=== PATIENT | female | born 1995 | race Caucasian/White ===

== ENCOUNTER 2018-01-27 14:52 | Emergency (ER) | payer OTHER ==
[~2018-01-27] VITALS: Ht 154.9 cm; Wt 59.0 kg
== END 2018-01-27 21:02 | disposition home or self-care (01) ==
LOC: ER 14:52
DX: O20.0 Threatened abortion (principal); Z34.81 Encounter for supervision of other normal pregnancy, first trimester

== ENCOUNTER 2018-01-31 13:39 | Inpatient (IN) | payer OTHER ==
[~2018-01-31] VITALS: Ht 165.1 cm; Wt 47.6 kg
[2018-02-02] MEDS ORDERED: AMOX1TAB5 PO (11:50)
[2018-02-02] MEDS ORDERED: DOXYCYCLINE HY100 MG PO (11:50)
== END 2018-02-02 13:41 | disposition home or self-care (01) | DRG 770 ==
LOC: ER 13:39 → SURG 21:52
PROC: 10D17ZZ Extraction of Products of Conception, Retained, Via Natural or Artificial Opening (ICD-10-PCS; principal; 2018-01-31)
PROC: BU4CZZZ Ultrasonography of Uterus and Ovaries (ICD-10-PCS; 2018-01-31)
DX: O03.37 Sepsis following incomplete spontaneous abortion (principal); O41.1220 Chorioamnionitis, second trimester, not applicable or unspecified; O41.1420 Placentitis, second trimester, not applicable or unspecified; O03.39 Incomplete spontaneous abortion with other complications; Z3A.17 17 weeks gestation of pregnancy